=== PATIENT | male | born 1990 | race Two or more races ===

== ENCOUNTER 2017-03-23 00:48 | Emergency (ER) | payer SELFPAY ==
[~2017-03-23] VITALS: Ht 177.8 cm; Wt 77.1 kg
[2017-03-23 01:08] VITALS: BP 131/83
[2017-03-23] MEDS ORDERED: predniSONE 20 MG TABLET ONE (01:12)
[2017-03-23] MEDS ORDERED: IBUPROFEN 400 MG TABLET ONE (01:12)
[2017-03-23] MEDS ORDERED: IBUPROFEN 400 MG TABLET PO ONE (01:30)
[2017-03-23] MEDS ORDERED: predniSONE 20 MG TABLET PO ONE (01:30)
== END 2017-03-23 01:21 | disposition home or self-care (01) ==
LOC: ER 00:52
DX: M62.830 Muscle spasm of back (principal); Z90.49 Acquired absence of other specified parts of digestive tract
CPT/HCPCS: 99283; A4606; J7512; Z7610